=== PATIENT | female | born 1980 | race Caucasian/White ===

== ENCOUNTER 2019-08-27 11:40 | Emergency (ER) | payer OTHER ==
[~2019-08-27] VITALS: Ht 162.6 cm; Wt 83.5 kg
[2019-08-27] MEDS ORDERED: SODIUM CHLORIDE 0.9% 1,000 ML IVB ONE (12:03)
[2019-08-27] MEDS ORDERED: ONDANSETRON HCL 4 MG/2 ML VIAL IV ONE (12:15)
[2019-08-27] MEDS ORDERED: MORPHINE SULFATE 4 MG/ML SYR/VIAL IV ONE (12:15)
[2019-08-27 12:20] LABS: Urine Bacteria NONE SEEN /hpf (None Seen); Urine Blood 2+ /uL (Negative); Urine Mucus FEW (None Seen); Urine Specific Gravity 1.014 (1.001-1.035); Urine WBC 1 /hpf (0 - 5)
[2019-08-27 13:44] LABS: White Blood Cell 14.5 10^3/uL (4.4-10.8)
[2019-08-27 13:46] LABS: Platelet Count (auto) 334 10^3/uL (140-450); Red Cell Distribution Width 13.9 % (11.8-14.3)
[2019-08-27 13:47] VITALS: BP 128/80
[2019-08-27 13:53] LABS: Basophils % (manual) 0 (0.0-2.0); Blast Cells 0; Metamyelocytes % 0; Promyelocytes % 0; Reactive Lymphocytes 0
[2019-08-27 14:41] LABS: Hemoglobin 13.2 g/dL (12.2-16.2); Red Blood Cells 4.63 10^6/uL (4.0-5.20)
[2019-08-27 14:42] LABS: Hematocrit 38.4 % (36.0-46.0)
[2019-08-27 14:43] LABS: Mean Corpuscular Hemoglobin 28.6 pg (28.0-32.0); Mean Corpuscular Hgb Conc. 34.5 g/dL (32.0-36.0)
[2019-08-27] MEDS ORDERED: KETOROLAC TROMETH 30 MG/ML 1ML VIAL IV ONE (14:45)
[2019-08-27 14:46] LABS: Band Neutrophils % (manual) 2; Lymphocytes % (manual) 14 (10.0-50.0)
[2019-08-27 14:47] LABS: Eosinophils % (manual) 6 (0-7); Monocytes % (manual) 4 (0-12); Myelocytes % 1
[2019-08-27 17:12] LABS: Anion Gap 15.4 (5-15); BUN/Creatinine Ratio 18.6; Carbon Dioxide 21.6 mmol/L (21-32); Glucose 140.4 mg/dL (74-106)
[2019-08-27 17:13] LABS: Albumin 4.2 g/dL (3.4-5.0); Aspartate Aminotransferase 26.4 U/L (15-37); Bilirubin, Total 0.5 mg/dL (0.2-1.0); Calcium 8.9 mg/dL (8.5-10.1)
== END 2019-08-27 15:10 | disposition left against medical advice (07) ==
LOC: ER 11:40
DX: K85.90 Acute pancreatitis without necrosis or infection, unspecified (principal); D72.829 Elevated white blood cell count, unspecified; E11.9 Type 2 diabetes mellitus without complications; I10 Essential (primary) hypertension; Z88.8 Allergy status to other drugs, medicaments and biological substances; R19.7 Diarrhea, unspecified; R11.2 Nausea with vomiting, unspecified
CPT/HCPCS: 36415; 74176; 80053; 81001; 81025; 82962; 83690; 85007; 85027; 96361; 96374; 99284; J1885

== ENCOUNTER 2019-08-29 04:44 | Emergency (ER) | payer OTHER ==
[~2019-08-29] VITALS: Ht 162.6 cm; Wt 84.1 kg
[2019-08-29 06:45] LABS: Urine Bacteria FEW /hpf (None Seen); Urine Blood 1+ /uL (Negative); Urine Hyaline Cast FEW /lpf (0 - 2); Urine Mucus FEW (None Seen); Urine Specific Gravity 1.019 (1.001-1.035); Urine WBC 5 /hpf (0 - 5)
[2019-08-29 08:02] LABS: Albumin 3.1 g/dL (3.4-5.0); Calcium 7.9 mg/dL (8.5-10.1); Magnesium 1.9 mg/dL (1.6-2.6)
[2019-08-29 08:04] LABS: INR 1.01 (0.9-1.15)
[2019-08-29 08:10] LABS: Bilirubin, Total 0.6 mg/dL (0.2-1.0)
[2019-08-29 08:31] LABS: Mean Corpuscular Volume 84.4 fL (80.0-100.0); Platelet Count (auto) 340 10^3/uL (140-450); Red Blood Cells 3.79 10^6/uL (4.0-5.20); Red Cell Distribution Width 14.2 % (11.8-14.3); White Blood Cell 12.1 10^3/uL (4.4-10.8)
[2019-08-29 08:43] LABS: BUN/Creatinine Ratio 15.5; Total Protein 7.7 g/dL (6.4-8.2)
[2019-08-29 09:08] LABS: Hematocrit 31.5 % (36.0-46.0); Hemoglobin 10.5 g/dL (12.2-16.2); Mean Corpuscular Hemoglobin 27.3 pg (28.0-32.0); Mean Corpuscular Hgb Conc. 31.9 g/dL (32.0-36.0)
[2019-08-29 09:11] LABS: Band Neutrophils % (manual) 0; Basophils % (manual) 0 (0.0-2.0); Blast Cells 0; Metamyelocytes % 0; Myelocytes % 0; Promyelocytes % 0; Reactive Lymphocytes 0
[2019-08-29 10:17] LABS: Potassium 3.8 mmol/L (3.5-5.1)
[2019-08-29] MEDS ORDERED: SODIUM CHLORIDE 0.9% 1,000 ML IV ONE (12:53)
[2019-08-29] MEDS ORDERED: PROMETHAZINE HCL 25 MG/ML 1ML IV PRN (13:00)
[2019-08-29] MEDS ORDERED: KETOROLAC TROMETH 30 MG/ML 1ML VIAL IV ONE (13:00)
[2019-08-29] MEDS ORDERED: ALUM & MAG HYDROX-SIMETH LIQ(MAALOX) 30 ML PO ONE (13:00)
[2019-08-29] MEDS ORDERED: FAMOTIDINE 20 MG TAB PO ONE (13:00)
[2019-08-29] MEDS ORDERED: DONNATAL 5ml ORAL Elix (BELLADONNA ALK-PHENOBARB) PO ONE (13:00)
[2019-08-29 13:23] LABS: Eosinophils % (manual) 6 (0-7); Lymphocytes % (manual) 18 (10.0-50.0); Monocytes % (manual) 8 (0-12)
[2019-08-29] MEDS ORDERED: NALBUPHINE HCL 10 MG/1ml INJECTION IV ONE (15:00)
[2019-08-29] MEDS ORDERED: MORPHINE SULFATE 4 MG/ML SYR/VIAL IV ONE (15:30)
[2019-08-29 15:39] VITALS: BP 118/81
== END 2019-08-29 16:35 | disposition home or self-care (01) ==
LOC: ER 04:44
DX: K59.8 Other specified functional intestinal disorders (principal); E11.65 Type 2 diabetes mellitus with hyperglycemia; I10 Essential (primary) hypertension; M75.51 Bursitis of right shoulder; Z90.49 Acquired absence of other specified parts of digestive tract; Z88.8 Allergy status to other drugs, medicaments and biological substances
CPT/HCPCS: 36415; 71046; 80053; 81001; 81025; 82150; 83690; 83735; 85007; 85027; 85610; 85730; 93005; 96361; 96374; 96375; 99284; J1885; J2270; J2550; J7030

== ENCOUNTER 2021-03-28 19:55 | Inpatient (IN) | payer OTHER ==
[~2021-03-28] VITALS: Ht 162.6 cm; Wt 85.4 kg
[2021-03-28 22:30] VITALS: BP 133/91
[2021-03-29] VITALS (7 sets, daily range): BP systolic 126–147; BP diastolic 88–103
[2021-03-29] MEDS ORDERED: DEXTROSE (50%) 50ML SYRG IV PRN (00:45)
[2021-03-29] MEDS ORDERED: MORPHINE SULFATE INJECTION 2 MG/ML SYRG IV PRN (00:45)
[2021-03-29] MEDS ORDERED: HYDROmorphone HCL 2 MG/ML VL IV PRN (00:45)
[2021-03-29] MEDS ORDERED: HYDROcodone-ACET 5/325MG TAB PO PRN (00:45)
[2021-03-29] MEDS ORDERED: ALUM & MAG HYDROX-SIMETH LIQ(MAALOX) 30 ML PO PRN (01:45)
[2021-03-29 02:25] LABS: Albumin 2.6 g/dL (3.4-5.0); BUN/Creatinine Ratio 8.1; Calcium 7.7 mg/dL (8.5-10.1); Potassium 3.7 mmol/L (3.5-5.1)
[2021-03-29 02:33] LABS: Bilirubin, Total 1.4 mg/dL (0.2-1.0)
[2021-03-29 02:34] LABS: Hematocrit 31.7 % (36.0-46.0); Hemoglobin 11.3 g/dL (12.2-16.2); Mean Corpuscular Hgb Conc. 35.5 g/dL (32.0-36.0); Mean Corpuscular Volume 87.3 fL (80.0-100.0); Red Blood Cells 3.63 10^6/uL (4.0-5.20); Red Cell Distribution Width 13.3 % (11.8-14.3); White Blood Cell 10.5 10^3/uL (4.4-10.8)
[2021-03-29 02:44] LABS: Basophils % (manual) 0 (0.0-2.0); Blast Cells 0; Metamyelocytes % 0; Myelocytes % 0; Promyelocytes % 0; Reactive Lymphocytes 0
[2021-03-29 03:07] LABS: Band Neutrophils % (manual) 5; Eosinophils % (manual) 3 (0-7); Lymphocytes % (manual) 23 (10.0-50.0); Monocytes % (manual) 5 (0-12)
[2021-03-29 03:26] LABS: Cholesterol 380 mg/dL (< 200); HDL Cholesterol 21 mg/dL (40-59); Triglycerides 1733 mg/dL (< 150)
[2021-03-29] MEDS: HYDROmorphone HCL 2 MG/ML VL IV PRN ×5 (03:54→19:05)
[2021-03-29] MEDS: ONDANSETRON HCL 4 MG/2 ML VIAL IV PRN ×4 (03:54→20:40)
[2021-03-29] MEDS: D5W/SOD CHL 0.45%/KCL 20MEQ 1,000 ML IV SCH ×3 (04:00→20:41)
[2021-03-29] MEDS ORDERED: PROP60CA34 PO (05:32)
[2021-03-29] MEDS ORDERED: ICOS1CAP OR (05:32)
[2021-03-29] MEDS ORDERED: ESCI20TA PO (05:32)
[2021-03-29] MEDS ORDERED: NIFE1TAB31 PO (05:32)
[2021-03-29] MEDS: InsuLIN REG 1unit/0.01ml Soln (100units/ml) SC SCH ×4 (07:20→22:00)
[2021-03-29] MEDS: ACCU-CHEK COMFORT CURVE STRIP VI SCH ×4 (07:21→22:00)
[2021-03-29] MEDS: LEXAPRO 20 MG PO SCH (10:00)
[2021-03-29] MEDS: VASCEPA 2 GM PO SCH ×2 (10:00→22:00)
[2021-03-29] MEDS ORDERED: VASCEPA 2 GM PO SCH (10:00)
[2021-03-29] MEDS: PANTOPRAZOLE 40 MG/10 ML VIAL INJ IV SCH ×2 (10:51→22:00)
[2021-03-29] MEDS: METOPROLOL SUCCINATE XL 50 MG TAB PO SCH (10:58)
[2021-03-29] MEDS ORDERED: GADOTERATE MEG 10 MMOL/20ml INJ (0.5MMOL/ml) IV ONE (13:43)
[2021-03-29] MEDS ORDERED: ATORVASTATIN 20 MG TAB PO ONE (23:45)
[2021-03-30] MEDS: HYDROmorphone HCL 2 MG/ML VL IV PRN ×6 (01:19→22:00)
[2021-03-30] MEDS: ONDANSETRON HCL 4 MG/2 ML VIAL IV PRN ×6 (01:19→18:45)
[2021-03-30 05:00] VITALS: BP 135/75
[2021-03-30 07:00] LABS: Basophils # (auto) 0 10 ^3/uL (0-0.2); Basophils % (auto) 0.4 % (0.0-2.0); Eosinophils # (auto) 0.3 10 ^3/uL (0-0.8); Eosinophils % (auto) 3.7 % (0.0-7.0); Hemoglobin 10.7 g/dL (12.2-16.2); Lymphocytes # (auto) 2.3 10 ^3/uL (0.4-5.4); Lymphocytes % (auto) 26.5 % (10.0-50.0); Mean Corpuscular Hemoglobin 30.2 pg (28.0-32.0); Mean Corpuscular Hgb Conc. 34.4 g/dL (32.0-36.0); Mean Corpuscular Volume 87.7 fL (80.0-100.0); Monocytes # (auto) 0.8 10 ^3/uL (0-1.3); Monocytes % (auto) 8.8 % (0.0-12.0); Neutrophils # (auto) 5.2 10 ^3/uL (1.6-8.6); Neutrophils % (auto) 60.6 % (37.0-80.0); Nucleated Red Blood Cells % 0.1 %; Red Blood Cells 3.54 10^6/uL (4.0-5.20); Red Cell Distribution Width 13.3 % (11.8-14.3); White Blood Cell 8.6 10^3/uL (4.4-10.8)
[2021-03-30 07:07] LABS: Potassium 3.8 mmol/L (3.5-5.1)
[2021-03-30] MEDS: ACCU-CHEK COMFORT CURVE STRIP VI SCH ×4 (07:10→22:18)
[2021-03-30 07:11] LABS: Folate (Folic Acid) 14.94 ng/mL (5.38-24)
[2021-03-30] MEDS: InsuLIN REG 1unit/0.01ml Soln (100units/ml) SC SCH ×4 (07:14→22:15)
[2021-03-30 07:19] LABS: Albumin 2.7 g/dL (3.4-5.0); BUN/Creatinine Ratio 6.1; Bilirubin, Total 0.6 mg/dL (0.2-1.0); Calcium 8.8 mg/dL (8.5-10.1); Total Protein 7.3 g/dL (6.4-8.2)
[2021-03-30 09:00] VITALS: BP 139/99
[2021-03-30] MEDS: PANTOPRAZOLE 40 MG/10 ML VIAL INJ IV SCH ×2 (09:19→21:17)
[2021-03-30] MEDS: GEMFIBROZIL 600 MG TAB PO SCH ×2 (09:20→21:19)
[2021-03-30] MEDS: METOPROLOL SUCCINATE XL 50 MG TAB PO SCH (09:29)
[2021-03-30] MEDS: LEXAPRO 20 MG PO SCH (09:30)
[2021-03-30] MEDS: VASCEPA 2 GM PO SCH (09:30)
[2021-03-30] MEDS ORDERED: ESCI-28 PO (09:31)
[2021-03-30] MEDS ORDERED: ESCI10TA PO (09:32)
[2021-03-30] MEDS ORDERED: ICOS1CAP PO (09:34)
[2021-03-30] MEDS ORDERED: ESCITALOPRAM 20 MG PO SCH (10:00)
[2021-03-30] MEDS ORDERED: ICOSAPENT ETHYL 1 GM PO SCH (10:00)
[2021-03-30] MEDS: ICOSAPENT ETHYL 1 GM PO SCH ×3 (10:56→21:59)
[2021-03-30] MEDS: ESCITALOPRAM 20 MG PO SCH (10:57)
[2021-03-30] MEDS: D5W/SOD CHL 0.45%/KCL 20MEQ 1,000 ML IV SCH (11:24)
[2021-03-30 13:00] VITALS: BP 135/94
[2021-03-30 16:21] VITALS: BP 122/85
[2021-03-30] MEDS ORDERED: D5W/SOD CHL 0.45%/KCL 20MEQ 1,000 ML IV SCH ×2 (17:00→17:15)
[2021-03-30] MEDS ORDERED: HYDROmorphone HCL 2 MG/ML VL IV PRN (17:15)
[2021-03-30] MEDS ORDERED: SOD CHL 0.45% 1,000 ML IV SCH (21:15)
[2021-03-30 22:00] VITALS: BP 140/92
[2021-03-30] MEDS ORDERED: ATORVASTATIN 20 MG TAB PO SCH ×2 (22:00)
[2021-03-31] MEDS: HYDROmorphone HCL 2 MG/ML VL IV PRN ×7 (01:22→21:07)
[2021-03-31 05:00] VITALS: BP 138/96
[2021-03-31] MEDS: InsuLIN REG 1unit/0.01ml Soln (100units/ml) SC SCH ×4 (06:17→22:44)
[2021-03-31] MEDS: ONDANSETRON HCL 4 MG/2 ML VIAL IV PRN ×2 (06:17→14:57)
[2021-03-31] MEDS: ACCU-CHEK COMFORT CURVE STRIP VI SCH ×4 (06:17→22:00)
[2021-03-31 08:00] VITALS: BP 142/100
[2021-03-31 09:39] VITALS: BP 142/100
[2021-03-31] MEDS: METOPROLOL SUCCINATE XL 50 MG TAB PO SCH (10:14)
[2021-03-31] MEDS: ESCITALOPRAM 20 MG PO SCH (10:14)
[2021-03-31] MEDS: GEMFIBROZIL 600 MG TAB PO SCH ×2 (10:14→22:36)
[2021-03-31] MEDS: PANTOPRAZOLE 40 MG/10 ML VIAL INJ IV SCH ×2 (10:14→22:35)
[2021-03-31] MEDS: ICOSAPENT ETHYL 1 GM PO SCH ×2 (11:14→22:35)
[2021-03-31 11:31] LABS: Basophils # (auto) 0.1 10 ^3/uL (0-0.2); Basophils % (auto) 1.3 % (0.0-2.0); Eosinophils # (auto) 0.4 10 ^3/uL (0-0.8); Eosinophils % (auto) 6.3 % (0.0-7.0); Hematocrit 32.8 % (36.0-46.0); Hemoglobin 11.3 g/dL (12.2-16.2); Lymphocytes # (auto) 2.4 10 ^3/uL (0.4-5.4); Lymphocytes % (auto) 35.4 % (10.0-50.0); Mean Corpuscular Hemoglobin 29.9 pg (28.0-32.0); Mean Corpuscular Hgb Conc. 34.4 g/dL (32.0-36.0); Mean Corpuscular Volume 86.9 fL (80.0-100.0); Monocytes # (auto) 0.6 10 ^3/uL (0-1.3); Monocytes % (auto) 8.9 % (0.0-12.0); Neutrophils # (auto) 3.2 10 ^3/uL (1.6-8.6); Neutrophils % (auto) 48.1 % (37.0-80.0); Nucleated Red Blood Cells % 0.1 %; Red Blood Cells 3.78 10^6/uL (4.0-5.20); Red Cell Distribution Width 13.2 % (11.8-14.3); White Blood Cell 6.7 10^3/uL (4.4-10.8)
[2021-03-31 11:49] LABS: Calcium 9.5 mg/dL (8.5-10.1); Potassium 3.8 mmol/L (3.5-5.1)
[2021-03-31 11:54] LABS: Albumin 2.9 g/dL (3.4-5.0); BUN/Creatinine Ratio 6.9; Bilirubin, Total 0.4 mg/dL (0.2-1.0); Total Protein 7.8 g/dL (6.4-8.2)
[2021-03-31 13:00] VITALS: BP 139/95
[2021-03-31 16:52] VITALS: BP 139/98
[2021-03-31] MEDS ORDERED: SODIUM CHLORIDE 0.9% 1,000 ML IV SCH (20:15)
[2021-03-31 21:58] VITALS: BP 160/105
[2021-04-01] MEDS: HYDROmorphone HCL 2 MG/ML VL IV PRN ×7 (01:07→22:29)
[2021-04-01 05:30] VITALS: BP 160/108
[2021-04-01] MEDS: InsuLIN REG 1unit/0.01ml Soln (100units/ml) SC SCH ×4 (06:43→22:17)
[2021-04-01] MEDS: ACCU-CHEK COMFORT CURVE STRIP VI SCH ×4 (06:46→22:13)
[2021-04-01 07:07] LABS: Calcium 9.5 mg/dL (8.5-10.1); Potassium 3.8 mmol/L (3.5-5.1)
[2021-04-01 07:15] LABS: Albumin 3.2 g/dL (3.4-5.0); BUN/Creatinine Ratio 11.1; Bilirubin, Total 0.5 mg/dL (0.2-1.0); Total Protein 8.3 g/dL (6.4-8.2)
[2021-04-01 08:00] VITALS: BP 157/106
[2021-04-01 08:50] VITALS: BP 150/107
[2021-04-01] MEDS: METOPROLOL SUCCINATE XL 50 MG TAB PO SCH (09:45)
[2021-04-01] MEDS: ICOSAPENT ETHYL 1 GM PO SCH ×2 (09:45→22:12)
[2021-04-01] MEDS: PANTOPRAZOLE 40 MG/10 ML VIAL INJ IV SCH ×2 (09:45→22:12)
[2021-04-01] MEDS: ESCITALOPRAM 20 MG PO SCH (09:45)
[2021-04-01] MEDS: GEMFIBROZIL 600 MG TAB PO SCH ×2 (09:45→22:13)
[2021-04-01 13:00] VITALS: BP 133/101
[2021-04-01] MEDS: ONDANSETRON HCL 4 MG/2 ML VIAL IV PRN (14:24)
[2021-04-01 17:00] VITALS: BP 126/85
[2021-04-01] MEDS ORDERED: cloNIDine HCL 0.1 MG TAB PO PRN (18:15)
[2021-04-01] MEDS ORDERED: SODIUM CHLORIDE 0.9% 1,000 ML IV SCH (18:30)
[2021-04-01] MEDS ORDERED: ACETAMINOPHEN 325 MG TAB PO PRN (19:15)
[2021-04-01 21:58] VITALS: BP 142/95
[2021-04-02] MEDS: HYDROmorphone HCL 2 MG/ML VL IV PRN ×2 (05:12→09:44)
[2021-04-02 05:30] VITALS: BP_SYST 146; BP_SYST 155; BP_DIAS 106; BP_DIAS 69
[2021-04-02] MEDS: InsuLIN REG 1unit/0.01ml Soln (100units/ml) SC SCH ×2 (06:28→11:49)
[2021-04-02] MEDS: ACCU-CHEK COMFORT CURVE STRIP VI SCH ×2 (06:38→11:47)
[2021-04-02 09:00] VITALS: BP 149/94
[2021-04-02] MEDS: ESCITALOPRAM 20 MG PO SCH (09:32)
[2021-04-02] MEDS: GEMFIBROZIL 600 MG TAB PO SCH (09:32)
[2021-04-02] MEDS: ICOSAPENT ETHYL 1 GM PO SCH (09:32)
[2021-04-02] MEDS: PANTOPRAZOLE 40 MG/10 ML VIAL INJ IV SCH (09:32)
[2021-04-02] MEDS ORDERED: METOPROLOL SUCCINATE XL 50 MG TAB PO SCH (10:00)
[2021-04-02] MEDS ORDERED: PANT40T PO (11:34)
[2021-04-02] MEDS ORDERED: PANC1CAP PO (11:35)
== END 2021-04-02 14:30 | disposition home or self-care (01) | DRG 439 ==
LOC: WEST WING 23:15
PROVIDERS: ADMIT Specialist; ATTEND Specialist
DX: K85.90 Acute pancreatitis without necrosis or infection, unspecified (principal); E44.1 Mild protein-calorie malnutrition; E87.1 Hypo-osmolality and hyponatremia; I16.1 Hypertensive emergency; K86.1 Other chronic pancreatitis; E86.1 Hypovolemia; E78.5 Hyperlipidemia, unspecified; Z68.32 Body mass index [BMI] 32.0-32.9, adult; D50.9 Iron deficiency anemia, unspecified; Z20.822 Contact with and (suspected) exposure to COVID-19; E11.9 Type 2 diabetes mellitus without complications; E78.00 Pure hypercholesterolemia, unspecified; E77.8 Other disorders of glycoprotein metabolism; E78.1 Pure hyperglyceridemia; Z79.899 Other long term (current) drug therapy; Z81.8 Family history of other mental and behavioral disorders; Z82.49 Family history of ischemic heart disease and other diseases of the circulatory system; Z83.3 Family history of diabetes mellitus; Z90.49 Acquired absence of other specified parts of digestive tract; Z91.018 Allergy to other foods; Z91.040 Latex allergy status; E66.09 Other obesity due to excess calories
CPT/HCPCS: 36415; 74183; 80053; 80061; 82607; 82746; 82962; 83036; 83690; 84443; 85007; 85025; 85027; 87040; 87426; C9113; G0378; J1815; J2405